=== PATIENT | male | born 1970 | race Caucasian/White ===

== ENCOUNTER 2016-04-09 15:24 | Emergency (ER) | payer BC, OTHER ==
[2016-04-09 15:46] VITALS: BP 135/80; PULSE 98; RESP 16; TEMP 99; O2SAT 93
--- NOTE | 2016-04-09 15:55 | UCPHY ---
H & P Time Seen by Provider: 04/09/16 15:40 Patient Type: Established HPI/ROS: This patient complains of cough associated with mild nasal congestion that is resolving and a high temperature of 100.3 F this morning. Symptoms started 2 days prior to arrival while on a trip to [place] for business. He reports associated mild intermittent headaches similar to previous headaches frontal region. He also reports mild intermittent dizziness. Finally, he reports mild shortness of breath and wheeze associated with his symptoms. ROS: No high fevers or chills. No myalgias. No other constitutional symptoms. HEENT: No significant sinus tenderness. No confusion. No other neuro symptoms. Pulmonary: No pleuritic pain. No respiratory distress. Cardiac: No heart palpitations. No lower extremity swelling. GI: No vomiting 7 point ROS is otherwise negative. Past Medical/Surgical History: Hypertension and hypercholesterolemia. Otherwise healthy Smoking Status: Never smoked Physical Exam: Physical Exam Vital signs are normal with exception of O2 sat of 93% on room air. General: No acute distress HEENT: Nose: Clear naris at this time. Oropharynx: No erythema exudates or dysphonia. Ears: External canals and TMs clear bilaterally. Eyes: Pupils equal and react to light. Extraocular motions are intact. Lungs: Faint expiratory wheeze with deep breaths or coughs. No rales or rhonchi. No respiratory distress. Cardiac: Regular rate and rhythm with no murmur gallop rub. No leg swelling or calf tenderness. Skin: No rash or pallor. Neuro: Alert with no sensorimotor deficits. Initial differential diagnosis: Viral versus bacterial bronchitis. URI with cough Constitutional: Initial Vital Signs Temperature (C) 37.2 C 04/09/16 15:39 Heart Rate 98 04/09/16 15:39 Respiratory Rate 16 04/09/16 15:39 Blood Pressure 135/80 H 04/09/16 15:39 O2 Sat (%) 93 04/09/16 15:39 O2 Delivery Mode Room Air Allergies/Adverse Reactions: meperidine HCl [From Demerol] Allergy (Verified 04/09/16 15:29) Loss of consciousness Home Medications: Medication Instructions Recorded Cetirizine HCl [Zyrtec] 10 mg PO 12/27/10 SIMVASTATIN [Zocor] 40 mg PO 12/27/10 Lipitor 10 mg (RX) 05/03/15 Losartan Potassium 06/24/14 Ondansetron Odt [Zofran Odt] 4 - 8 mg PO Q4PRN PRN #4 tab 06/24/14 Albuterol Hfa Anes Only [Proair 2 puffs IH Q4 PRN #1 mdi 04/09/16 Hfa Icu (*)] Guaifenesin/Codeine Phosphate 5 - 10 ml PO Q6 PRN #120 ml 04/09/16 [Guaifenesin-Codeine Liquid] MDM/Departure - [facility] ED Course/Re-evaluation: Given the small duration of the patient's illness, minimal fevers, well appearance and minimal auscultatory findings with no risk factors for significant infectious complications I suspect this patient has a viral bronchitis I counseled regarding it. - Depart Disposition: Home, Routine, Self-Care Clinical Impression: Acute bronchitis Qualifiers: Bronchitis organism: unspecified organism Qualified Code(s): J20.9 - Acute bronchitis, unspecified Condition: Good Instructions: Acute Bronchitis (ED) Additional Instructions: Diagnosis: Viral bronchitis Plan: Humidifier Albuterol inhaler with spacer for cough, wheeze or shortness of breath Guaifenesin with codeine for cough at night that prevents sleep. Her symptoms should resolve over the next 5-10 days. Return for any significant worsening despite the treatment plan. Prescriptions: Albuterol Hfa Anes Only [Proair Hfa Icu (*)] 2 puffs IH Q4 PRN #1 mdi PRN Reason: Wheezing Guaifenesin/Codeine Phosphate [Guaifenesin-Codeine Liquid] 5 - 10 ml PO Q6 PRN # 120 ml PRN Reason: Cough Referrals: NONE *PRIMARY CARE P,. [Primary Care Provider] - As per Instructions - PQRS PQRS Measurement: NA
== END 2016-04-09 16:09 | disposition home or self-care (01) ==
LOC: CED 15:24
DX: J20.8 Acute bronchitis due to other specified organisms (principal); I10 Essential (primary) hypertension; E78.00 Pure hypercholesterolemia, unspecified
CPT/HCPCS: 99214-PO; G0463-PO

== ENCOUNTER 2017-04-18 11:15 | Emergency (ER) | payer OTHER ==
[2017-04-18 11:34] VITALS: RESP 16; TEMP 98.1; O2SAT 95
[2017-04-18] MEDS ORDERED: IBUPROFEN 600 MG TAB PO ONE (11:41)
--- NOTE | 2017-04-18 12:16 | EDPHY ---
H & P Time Seen by Provider: 04/18/17 11:20 HPI/ROS: This patient missed a stair out his wooden stair case that has 90 degree turn midway down-slipped on the wood and fell down 8 stairs. He landed directly on his right lower posterior ribs against the stair and complains of moderate achy pain at baseline but goes up to 8/10 with a deep breath or movements. He felt crepitance from removing at the site of the injury. He also complains of tenderness to the right olecranon area of the right elbow since the fall. Finally, he reports a superficial abrasion to the left ankle and left inner arm. He denies any other associated injuries. The incident occurred at 8:00 a.m.. His drove here by private vehicle for further evaluation of the symptoms. He has not had any medications prior to arrival. ROS: Constitutional: She felt well prior to the fall. HEENT: No head injury no facial injuries. Neuro: No numbness tingling, head injury or other complaints. Musculoskeletal: No midline neck or back pain. Pulmonary: No dyspnea. No hemoptysis. Cardiovascular: No lightheadedness. Integumentary: No lacerations. 8 point ROS is otherwise negative Past Medical/Surgical History: Hypertension and dyslipidemia Smoking Status: Never smoked Physical Exam: General Appearance: Alert, no distress. Eyes: Pupils equal and round no pallor or injection. ENT, -atraumatic. Mouth: Mucous membranes moist. Respiratory: Patient has right posterior rib tenderness around the 8th to 10th rib region. Clear to auscultation bilaterally. No rales or rhonchi. Cardiovascular: Regular rate and rhythm. No murmur gallop or rub. Gastrointestinal: Abdomen is soft and nontender, no masses, bowel sounds normal. Neurological: GCS 15. Skin: Warm and dry, no rashes. Extremities are symmetrical, full range of motion. Atraumatic except for right elbow Right elbow: Patient has tenderness and mild swelling to the olecranon. Despite this retains good range of motion of his elbow. Psychiatric: Mood and affect are normal DIFFERENTIAL DIAGNOSIS: After history and physical exam differential diagnosis was considered for rib fracture, rib contusion, pneumothorax, hemothorax, right elbow contusion versus fracture Constitutional: Initial Vital Signs Temperature (C) 36.7 C 04/18/17 11:25 Heart Rate 79 02/25/18 11:25 Respiratory Rate 16 04/18/17 11:25 Blood Pressure 128/81 H 04/18/17 11:25 O2 Sat (%) 95 04/18/17 11:25 O2 Delivery Mode Room Air Allergies/Adverse Reactions: meperidine HCl [From Demerol] Allergy (Verified 04/18/17 11:23) Loss of consciousness Home Medications: Medication Instructions Recorded Cetirizine HCl [Zyrtec] 10 mg PO 12/27/10 SIMVASTATIN [Zocor] 40 mg PO 12/27/10 Lipitor 10 mg (RX) 06/24/14 Losartan Potassium 06/24/14 Lidocaine [Lidoderm] 1 each TP DAILY 15 Days #1 04/18/17 adh..patch traMADol [Ultram 50 mg (*)] 50 - 100 mg PO Q4 PRN #20 tab 04/18/17 MDM/Departure - MDM Diagnostics: Two view chest x-ray: Negative for rib fracture, pneumothorax or hemothorax by my interpretation Right-sided rib films: Negative for displaced rib fracture by my interpretation Three-view elbow x-ray: Subtle olecranon fracture versus bone spur-more likely bone spur by my interpretation Imaging Results: Imaging Impressions Chest X-Ray 04/18/17 11:41 Impression: Chest negative for acute posttraumatic abnormality. Right Ribs (4 views) History: Pain post trauma. Findings: A displaced rib fracture is not identified. A skin marker is placed in the symptomatic region. Impression: Negative for displaced rib fracture or pneumothorax. Elbow X-Ray 04/18/17 11:41 Impression: Negative for fracture. Ribs X-Ray 04/18/17 12:08 Impression: Chest negative for acute posttraumatic abnormality. Right Ribs (4 views) History: Pain post trauma. Findings: A displaced rib fracture is not identified. A skin marker is placed in the symptomatic region. Impression: Negative for displaced rib fracture or pneumothorax. Medications Given: Discontinued Medications Ibuprofen (Motrin) 600 mg PO EDNOW ONE Stop: 04/18/17 11:42 Last Admin: 04/18/17 11:45 Dose: 600 mg ED Course/Re-evaluation: Ibuprofen p.o. With some improvement the patient's pain Discussion: Patient presents with rib injury that I think is likely a nondisplaced rib fracture versus costal chondral cartilage injury without evidence of pneumothorax, hemothorax other complicating factors. I reviewed our radiologist read of the elbow film-no fracture. I counseled patient regarding his radiograph findings. I counseled him regarding rib injury the importance of taking a deep breath despite the pain. He does not have clinical evidence that would suggest solid organ injury or other concerning findings Will plan to treat him with combination of Lidoderm patches, ibuprofen, Tylenol and if needed tramadol for pain that prevents sleep. Answered all the patient' s questions prior to discharge home. The patient understands need to return to the emergency department if he develops any worsening symptoms despite the treatment plan. - Depart Disposition: Home, Routine, Self-Care Clinical Impression: Rib sprain Qualifiers: Encounter type: initial encounter Qualified Code(s): S23.41XA - Sprain of ribs , initial encounter Elbow contusion Qualifiers: Encounter type: initial encounter Laterality: right Qualified Code(s): S50.01XA - Contusion of right elbow, initial encounter Condition: Good Instructions: Tramadol (By mouth), Lidocaine Patch (On the skin), Rib Fracture (ED) Additional Instructions: Diagnosis: Rib injury 2. Elbow contusion Plan: Ice 20 min at a time to 3 times a day until pain improves Ibuprofen and Tylenol Lidoderm patch and tramadol in addition if needed. No driving, alcohol work on tramadol. Take a deep breath every 10-15 minutes despite the pain to prevent secondary complication of pneumonia. Return for any significant worsening despite the treatment plan. Prescriptions: Lidocaine [Lidoderm] 1 each TP DAILY 15 Days #1 adh..patch traMADol [Ultram 50 mg (*)] 50 - 100 mg PO Q4 PRN #20 tab PRN Reason: breakthrough pain Referrals: Mavis Melchor MD [Primary Care Provider] - As per Instructions
[2017-04-18 13:05] VITALS: BP 117/90; PULSE 75
== END 2017-04-18 12:53 | disposition home or self-care (01) ==
LOC: CED 11:15
DX: S23.41XA Sprain of ribs, initial encounter (principal); S50.01XA Contusion of right elbow, initial encounter; I10 Essential (primary) hypertension; W10.8XXA Fall (on) (from) other stairs and steps, initial encounter
CPT/HCPCS: 71046-PO; 71100-PO; 73080-PO